=== PATIENT | male | born 1945 | race Caucasian/White ===

== ENCOUNTER 2025-08-27 14:07 | Inpatient (IN) | payer BC ==
[~2025-08-27] VITALS: Ht 177.8 cm; Wt 113.4 kg
[2025-08-27] MEDS: IV NORMAL SALINE 1000 ML BAG IV ONE (14:33)
[2025-08-27 14:46] LABS: PLATELET COUNT (AUTO) 241 K/uL (152-348); RED BLOOD CELL COUNT(AUTO) 4.48 MIL/uL (4.06-5.63); RED CELL DISTRIBUTION WIDTH 14.7 % (12.1-16.2); WHITE BLOOD COUNT (AUTO) 10.0 K/uL (3.6-10.2)
[2025-08-27 14:55] LABS: CREATININE 1.2 mg/dL (0.6-1.3); SODIUM SERUM 148 mmol/L (136-145); UREA NITROGEN, BLOOD 23 mg/dL (7-18)
[2025-08-27 14:56] LABS: ETHANOL < 3 MG/DL (0-10)
[2025-08-27 15:02] LABS: ASPARTATE AMINOTRANSFERASE 24 U/L (15-37); TOTAL PROTEIN, SERUM 7.1 g/dL (6.4-8.2)
[2025-08-27 15:34] LABS: *BILIRUBIN,URIN NEGATIVE (NEGATIVE); *BLOOD, URINE NEGATIVE (NEGATIVE); *CLARITY,URINE CLEAR (CLEAR); *COLOR,URINE YELLOW (YELLOW); *KETONES,URINE NEGATIVE (NEGATIVE); *PROTEIN,URINE TRACE (NEGATIVE); *UROBILINOGEN,URINE 0.2 E.U./dl (NORMAL); LEUKOCYTE ESTERASE ,URINE NEGATIVE (NEGATIVE); NITRITE, URINE NEGATIVE (NEGATIVE); UGLUCOSE NEGATIVE (NEGATIVE)
[2025-08-27 15:52] LABS: *AMPHETAMINE, URINE NEGATIVE (NEGATIVE); *BARBITURATE, URINE NEGATIVE (NEGATIVE); *BENZODIAZEPINE, URINE NEGATIVE (NEGATIVE); *CANNABINOID, URINE POSITIVE (NEGATIVE); *COCCAINE, URINE NEGATIVE (NEGATIVE); *OPIATE, URINE NEGATIVE (NEGATIVE); *PHENCYCLIDINE SCREEN,URINE NEGATIVE (NEGATIVE); FENTANYL, URINE NEGATIVE (NEGATIVE)
[2025-08-27 16:01] LABS: SQUAMOUS EPITHELIAL CELL,UR FEW /HPF (NONE SEEN)
[2025-08-27] MEDS: LORAZEPAM 2 MG/1 ML VIAL IM ONE (16:09)
[2025-08-27] MEDS ORDERED: MORPHINE SULFATE 2 MG/1 ML DISP.SYRIN ONE (18:10)
[2025-08-27] MEDS: MORPHINE SULFATE 2 MG/1 ML DISP.SYRIN IV ONE (18:13)
[2025-08-27 19:30] VITALS: BP 133/85
[2025-08-27] MEDS ORDERED: ONDANSETRON 4 MG/2 ML VIAL IV PRN (19:45)
[2025-08-27] MEDS ORDERED: ACETAMINOPHEN 650 MG SUPP.RECT RC PRN (19:45)
[2025-08-27 21:12] VITALS: BP 122/69; TEMP 98; O2SAT 94
[2025-08-27] MEDS: IV D5 1/2 NS 1000 ML 1,000 ML IV PRN (21:16)
[2025-08-27] MEDS: ENOXAPARIN SODIUM 40 MG/0.4 ML DISP.SYRIN SQ SCH (21:38)
[2025-08-27] MEDS ORDERED: LOSA50TA39 PO (22:08)
[2025-08-27] MEDS ORDERED: AMLO-212 PO (22:08)
[2025-08-27] MEDS ORDERED: TRIA1CAP PO (22:08)
[2025-08-27] MEDS ORDERED: VENL25TA4 PO (22:08)
[2025-08-27] MEDS ORDERED: OMEP40CA21 PO (22:08)
[2025-08-27] MEDS ORDERED: FLUT1BLS6 IH (22:08)
[2025-08-28] MEDS: LORAZEPAM 2 MG/1 ML VIAL IV PRN (03:22)
[2025-08-28 03:49] VITALS: O2SAT 97
[2025-08-28 05:40] VITALS: BP 118/63; TEMP 97.5; O2SAT 89
[2025-08-28 07:22] LABS: PLATELET COUNT (AUTO) 247 K/uL (152-348); RED BLOOD CELL COUNT(AUTO) 4.54 MIL/uL (4.06-5.63); RED CELL DISTRIBUTION WIDTH 14.0 % (12.1-16.2); WHITE BLOOD COUNT (AUTO) 10.4 K/uL (3.6-10.2)
[2025-08-28 07:42] LABS: CREATININE 1.0 mg/dL (0.6-1.3); SODIUM SERUM 147 mmol/L (136-145); UREA NITROGEN, BLOOD 17 mg/dL (7-18)
[2025-08-28 07:47] VITALS: BP 133/67; TEMP 97.8; O2SAT 97
[2025-08-28] MEDS: PANTOPRAZOLE SODIUM 40 MG VIAL IV SCH (08:44)
== END 2025-08-28 11:50 | disposition home or self-care (01) | DRG 917 ==
LOC: ER 14:07 → TELE3 20:29
DX: T40.711A Poisoning by cannabis, accidental (unintentional), initial encounter (principal); G92.8 Other toxic encephalopathy; E87.0 Hyperosmolality and hypernatremia; F12.10 Cannabis abuse, uncomplicated; I10 Essential (primary) hypertension; Y92.009 Unspecified place in unspecified non-institutional (private) residence as the place of occurrence of the external cause; G89.29 Other chronic pain; E78.5 Hyperlipidemia, unspecified; E86.0 Dehydration; Z79.899 Other long term (current) drug therapy
CPT/HCPCS: 36415; 70450; 71045; 72170; 83605; 83735; 84100; 84443; 84484; 85025; 85730; 87040; 87086; 93005; A4606; A4663; C1758; G0378; G0480; J1650; J2060; J2270; J2470; J7040